=== PATIENT | male | born 1960 | race Caucasian/White ===

== ENCOUNTER → 2023-09-17 12:55 | Outpatient (CLI) | payer OTHER, SELFPAY ==
--- NOTE | 2023-09-17 13:02 | DIAB.MNT ---
Initial Diabetes Medical Nutrition Therapy Assessment Name: Jadon Wright (goes by Anabell) Date: 09/17/23 Time: 1-215p Dx: Type II Diabetes Provider: Tai Hung presents accompanied by his , with the same name Flores. Reports newly dx with T2DM x 2 months ago. Was started on Metformin and Mounjaro. Endorses minimal nausea and diarrhea with GLP1. Tolerable per report. FH of DM with mother. He and his live on a boat and motor home. They spend some time in different spots in [place] and [place]. Here until November. Interested in DM ed classes. Reports much suppressed appetite since starting GLP1. Portions are much smaller. is doing a form of intermittent fasting, which he by proxy follows. Also diet aims for low carb, somewhere around 20g CHO per day per report though seems more than that some days per diet recall. Since diagnosis has tried making diet and exercise changes. States he is unclear as to why DM will not go away with improved lifestyle change. Diet Recall: 8a: coffee with creamer x 1 TBS 11a-12p: eggs, veggies, [place], cheese OR Arabic yogurt, fruit, low CHO granola OR oatmeal with sf sweetener and berries 3p: leftovers OR fruit 6p: protein and veggies +/- 1/4 sweet potato or 1/2-1c brown rice 730-8p: low CHO ice cream x 1c 32-40oz water, sometimes sf beverages, ETOH 2x per week 1-2 servings Anthropometrics: Ht: 5'10 Wt: 290# reported Weight history: Reports -28# since dx 2 months ago. Physical Activity: Walking 3x per week for 60 mins. Self-Monitoring Blood Glucose: none, interested in knowing what numbers are. would like to contact pcp about rx. Diabetes Medications: 1000mg Metformin BID 7.5mg Mounjaro weekly Pertinent Labs: HGA1c: per referral 6.5% 06/2023 Past Medical History: Per referral: ETOH abuse, daily use, Obesity, Mixed HLD, HTN, T2DM Nutrition Rx: Carbohydrates: Meal:45g Snack:15-30g Nutrition Diagnosis: - Food and nutrition related knowledge deficit r/t newly dx T2DM aeb hgA1c 6.5% and pt report - Inadequate fluid intake r/t nutrition knowledge deficit about hydration aeb pt report and diet recall <40oz per day most days. Intervention: This participant was very receptive. Provided appropriate educational handouts. Discussed the following topics: Completed intake assessment. Discussed barriers to care. Pathophysiology of T2DM: insulin resistance, beta cell dysfunction, gluconeogenesis and why DM does not go away HgA1c, its correlation to blood glucose numbers, and rationale for goal Potential of self-monitoring and when to check. Suggested checking at different times to evaluate meals prn or understand symptom numbers Plate Method, impact of macronutrients on blood sugar, meal timing, carbohydrate counting, pairing macronutrients and spreading out carbohydrates for better blood glucose management Recommended servings for carbohydrates at meals and snacks [facility] nutrition Brainstormed appropriate meal plan based on food preferences Role of physical activity and following provider guidelines for safety Hydration recs and impact on BG Medications: actions and SE Created SMART goals for patient self-care and success. Goals: aim for 48-62oz water per day Try to pair protein when eating CHO Walk 4 x per day safely Ask PCP for meter rx prn Follow-up: BHARATHI DEAN follow-up in 3-4 weeks Risa Lama RDN, [facility] Certified Diabetes Care and Lumber Estimator P: [phone] Thank you for this referral
== END ==
PROVIDERS: PCP Family Medicine; Referring Provider Family Medicine
DX: E11.9 Type 2 diabetes mellitus without complications (principal); Z79.84 Long term (current) use of oral hypoglycemic drugs; Z79.85 Long-term (current) use of injectable non-insulin antidiabetic drugs; Z71.3 Dietary counseling and surveillance
CPT/HCPCS: 97802

== ENCOUNTER → 2023-10-18 13:00 | Outpatient (CLI) | payer MEDICARE, BC, SELFPAY ==
--- NOTE | 2023-10-18 14:02 | DIAB.MNTFU ---
Follow-up Diabetes Medical Nutrition Therapy Assessment Name: Jadon Wright Date: 10/18/23 Time: 1-145p Dx: Type II Diabetes Provider: Valentinagirma Anabell presents accompanied by his . Has seen PCP recently. New hgA1c of 5.7%. Has reduced statin and lipid profile in goal, except low HDL of 35. Has increased water intake. Curious about how much protein and kcals to have. Pairing CHO and protein more frequently. Increased GLP1 with new rx from PCP. Noticing continued lower appetite. Does still eat 3 x per day. Some reflux, relieved by antacids. Improved BM with diarrhea 1-2x per week, which he says is normal for him. d/c of Metformin since last visit. Questions about ETOH intake and heart health nutrition. Does not have meter or strips rx. Diet Recall: 8a: coffee with creamer x 1 TBS, part protein shake, oatmeal 11a-12p or 3p: leftovers 6p: protein and veggies +/- 1/4 sweet potato or 1/2-1c brown rice OR chili OR fish and salad 48oz water ETOH couple times per week Anthropometrics: Ht: 5'10 Wt: 285# Weight history: Reported down 5# since last visit. Physical Activity: Walking 3x per week for 60-90 mins. Aiming for 4x. Self-Monitoring Blood Glucose: none, interested in knowing what numbers are. would like to contact pcp about rx. Sees PCP in a few weeks again. Diabetes Medications: 1000mg Metformin BID-- d/c 12.5mg Mounjaro weekly Pertinent Labs: HGA1c: per referral 6.5% 06/2023 Past Medical History: Per referral: ETOH abuse, daily use, Obesity, Mixed HLD, HTN, T2DM Nutrition Rx: 1600kcals Carbohydrates: Meal:45g Snack:15-30g Protein: 80-130g/day Meal: 20-30g Snack: 7-14g Nutrition Diagnosis: - Food and nutrition related knowledge deficit r/t newly dx T2DM aeb hgA1c 6.5% and pt report- improved - Inadequate fluid intake r/t nutrition knowledge deficit about hydration aeb pt report and diet recall <40oz per day most days- improved Intervention: This participant was very receptive. Provided appropriate educational handouts. Discussed the following topics: Kcal and protein recs Physical activity plans and progress heart healthy nutrition: ETOH reduction, increase heart healthy fats, reduce sat fats ETOH kcals and implications for heart health Hydration recs and impact on BG Medications: actions and SE Created SMART goals for patient self-care and success. Goals: aim for 48-62oz water per day - met Try to pair protein when eating CHO- met Walk 4 x per day safely - in progress Ask PCP for meter rx prn- in progress Aim for 80g protein min- new Follow-up: BHARATHI DEAN follow-up prn, pt asked for f/u after [place] trip. Will schedule for July 2024. Risa Lama RDN, [facility] Certified Diabetes Care and Crystallography Teacher P: [phone] Thank you for this referral
== END ==
PROVIDERS: PCP Family Medicine; Referring Provider Family Medicine
DX: E11.9 Type 2 diabetes mellitus without complications (principal); Z79.84 Long term (current) use of oral hypoglycemic drugs; Z79.85 Long-term (current) use of injectable non-insulin antidiabetic drugs; Z71.3 Dietary counseling and surveillance
CPT/HCPCS: 97803

== ENCOUNTER → 2024-07-16 13:04 | Outpatient (CLI) | payer OTHER, SELFPAY | PROVIDERS: PCP Family Medicine; Visit Provider Nurse Practitioner Family | DX: R30.0 Dysuria (principal) | CPT/HCPCS: 87086 ==

== ENCOUNTER 2024-07-16 13:24 | Emergency (ER) | payer OTHER, SELFPAY ==
[2024-07-16 13:28] VITALS: BP 174/101; PULSE 72; RESP 18; TEMP 36; O2SAT 98; BMI 35.2
[2024-07-16] MEDS: LIDOCAINE 2% (GLYDO) 6 ML GEL TOP (14:19)
[2024-07-16 14:29] LABS: Appearance Urine UA CLEAR; Bilirubin Urine UA NEGATIVE (NEGATIVE); Color Urine UA YELLOW; Glucose Urine UA NEGATIVE (Negative); Ketones Urine UA NEGATIVE (NEGATIVE); Leukocyte Esterase Urine UA NEGATIVE (NEGATIVE); Nitrite Urine UA NEGATIVE (Negative); Occult Blood Urine UA TRACE-INTACT (Negative); Protein Urine UA NEGATIVE (Negative); Specific Gravity Urine UA >=1.030 (1.000-1.035); Urobilinogen Urine UA 0.2 E.U./dL (0.2); pH Urine UA 5.5 (4.5-8.0)
[2024-07-16 14:32] LABS: Urine Volume 10mL (spun)
[2024-07-16 14:33] LABS: Bacteria Urine None Seen; Culture Indicated Urine Cult Not Indicated; RBC Urine 1-5/HPF (0-5/HPF); Squamous Epithelial Cell Urine None Seen (0-5/HPF); WBC Urine None Seen (0-5/HPF)
[2024-07-16 15:43] VITALS: BP 160/87; O2SAT 97
--- NOTE | 2024-07-16 16:39 | ED.GENADULT ---
HPI - General Adult General Chief complaint: Urogenital-Male Stated complaint: pcp ref, urogenital male, abd pain Time Seen by Provider: 07/16/24 13:41 Source: patient Mode of arrival: Ambulatory History of Present Illness HPI narrative: 63-year-old gentleman with a history of BPH currently on tamsulosin, recurrent episodes of acute urinary retention requiring Samuels catheter placement, hypertension, hyperlipidemia presents complaining of acute urinary retention. No fevers, cough, chills. Most recent Samuels catheter was taken out about 3 weeks ago. He has not appointment with his primary care doctor tomorrow to get a referral for Urology regarding his BPH. Related Data Home Medications Medication Instructions Recorded Confirmed aspirin 81 mg tablet,delayed 81 mg PO DAILY 11/28/23 07/16/24 release lisinopril 40 mg tablet 40 mg PO BID 11/28/23 07/16/24 rosuvastatin 20 mg tablet 20 mg PO DAILY 11/28/23 07/16/24 tadalafil 20 mg tablet 20 mg PO DAILY PRN intercourse 11/28/23 07/16/24 Previous Rx's Medication Instructions Recorded tamsulosin 0.4 mg capsule 0.4 mg PO BEDTIME #90 caps 12/09/23 bictegravir 50 mg-emtricitabine 1 tab PO DAILY #90 tabs 03/26/24 200 mg-tenofovir alafenam 25 mg tablet (Biktarvy) carvedilol 12.5 mg tablet 12.5 mg PO BID #180 tabs 04/03/24 tirzepatide 15 mg/0.5 mL 15 mg (0.5 mL) SUBCUT QWEEK #2 mL 05/18/24 subcutaneous pen injector (Mounjaro) Allergies Allergy/AdvReac Type Severity Reaction Status Date / Time No Known Drug Allergies Allergy Verified 07/16/24 13:32 Review of Systems Review of Systems Narrative: Pertinent positive and negative findings as per HPI Patient History Medical History BPH (benign prostatic hyperplasia) Type 2 diabetes mellitus Erectile dysfunction Hyperlipidemia History of myocardial infarction Hypertension HIV (human immunodeficiency virus infection) Smoking Status: Never smoker Exam Initial Vital Signs Initial Vital Signs: Vital Signs Temperature 96.8 F L 07/16/24 13:28 Pulse Rate 72 07/16/24 13:28 Respiratory Rate 18 07/16/24 13:28 Blood Pressure 174/101 H 07/16/24 13:28 Pulse Oximetry 98 07/16/24 13:28 Oxygen Delivery Method Room Air 07/16/24 13:28 General: Alert appropriate in no acute distress Respiratory: Able to speak in full sentences, no obvious respiratory distress Skin: No obvious rashes, warm and dry Neurologic: Grossly intact no obvious asymmetries or abnormalities Psych: appropriate insight and affect, cooperative Post Samuels catheter placement, 900 cc out and no complaints of pain at this time Course Orders Ordered: ED Orders 07/16/24 14:07 Urinalysis and Microscopic Stat Discontinued Medications Lidocaine HCl (Lidocaine 2% (Glydo) 6 Ml Gel) 6 ml TOP NOW ONE Stop: 07/16/24 13:48 Last Admin: 07/16/24 14:19 Dose: 6 ml Documented By: ALEX Vital Signs Vital signs: Vital Signs - 8 hr 07/16/24 13:28 07/16/24 15:43 07/16/24 15:43 Temperature 96.8 F L Pulse Rate 72 Respiratory Rate 18 Blood Pressure 174/101 H 160/87 H Pulse Oximetry 98 97 Oxygen Delivery Method Room Air Medical Decision Making Lab Data Labs: Lab Results 07/16/24 Range/Units 14:07 Urine Color Yellow Urine Appearance Clear Urine pH 5.5 (4.5-8.0) Ur Specific [place] >=1.030 H (1.000-1.035) Urine Protein Negative (Negative) Urine Glucose (UA) Negative (Negative) g/dL Urine Ketones Negative (NEGATIVE) Urine Occult Blood Trace-intact (Negative) Urine Nitrate Negative (Negative) Urine Bilirubin Negative (NEGATIVE) Urine Urobilinogen 0.2 (0.2) E.U./dL Ur Leukocyte Esterase Negative (NEGATIVE) Urine RBC 1-5/hpf (0-5/HPF) Urine WBC None seen (0-5/HPF) Ur Squamous Epith Cells None seen (0-5/HPF) Urine Bacteria None seen (None) Ur Culture Indicated? Cult not indicated Vol Urine Centrifuged 10ml (spun) MDM Narrative Medical decision making narrative: 63-year-old gentleman with recurrent acute urinary retention. Most recent Samuels catheter removed about 3 weeks ago. He is currently on tamsulosin. Eyes having increasing abdominal pain secondary to his acute urinary retention. There was no evidence of infection or obstructing stones at this time. Samuels catheter is placed without significant difficulty. 900 cc is removed. He is aware of how to care for and maintain his catheter. He is given a large bag and of leg bag. He has an appointment with his primary care physician tomorrow to discuss this specific issue further and obtain a referral for urologic consultation. At this time there was no indication for further workup or hospitalization he is safe for discharge Discharge Plan Departure Patient Disposition: Home Clinical Impression: Acute urinary retention, BPH w urinary obs/LUTS Instructions: How to Care for Your Samuels Catheter -- Male, DI for Benign Prostatic Hyperplasia Activity Restrictions/Additional Instructions: thank you for coming in today I am sorry that your prostate is continuing to cause significant problems. I would recommend that you continue your tamsulosin for now Samuels catheter was placed, you had 900 cc of urine. Leg bag is given. You do need to talk to your primary care provider to get to urology. You likely we will need to continue the Samuels catheter until you have had further discussions with the urologist. You may need to have some type of surgical intervention to reduce the overall size of your prostate before you are able to successfully remove the catheter at this point. If you find that you are getting worse or develop any new symptoms, please feel free to return to the emergency department for further evaluation. Prescriptions: No Action tamsulosin 0.4 mg capsule 0.4 mg PO BEDTIME Qty: 90 3RF Biktarvy 50-200-25 mg tablet 1 tab PO DAILY Qty: 90 0RF Rx Instructions: short term while traveling carvedilol 12.5 mg tablet 12.5 mg PO BID Qty: 180 2RF Mounjaro 15 mg/0.5 mL pen injector 15 mg SUBCUT QWEEK Qty: 2 2RF tadalafil 20 mg tablet 20 mg PO DAILY PRN (Reason: intercourse) rosuvastatin 20 mg tablet 20 mg PO DAILY aspirin 81 mg tablet,delayed release (DR/EC) 81 mg PO DAILY lisinopril 40 mg tablet 40 mg PO BID Referrals: Fernando Mcnamara DO [Primary Care Provider] - Stand Alone Forms: Patient Portal/API/Survey
[2024-07-16 16:47] VITALS: BP 161/87; PULSE 71; RESP 17; O2SAT 98
== END 2024-07-16 16:43 | disposition home or self-care (01) ==
PROVIDERS: Emergency Provider Emergency Medicine; PCP Family Medicine
DX: N40.1 Benign prostatic hyperplasia with lower urinary tract symptoms (principal); R33.8 Other retention of urine; R30.0 Dysuria
CPT/HCPCS: 51798; 81001; 87086; 99283

== ENCOUNTER → 2024-07-21 14:00 | Outpatient (CLI) | payer MEDICARE, SELFPAY ==
[2024-07-21 14:38] LABS: Appearance Urine UA CLEAR; Bilirubin Urine UA 1+ (NEGATIVE); Color Urine UA YELLOW; Glucose Urine UA NEGATIVE (Negative); Ketones Urine UA TRACE (NEGATIVE); Leukocyte Esterase Urine UA TRACE (NEGATIVE); Nitrite Urine UA POSITIVE (Negative); Occult Blood Urine UA 3+ (Negative); Protein Urine UA 2+ (Negative); Specific Gravity Urine UA 1.025 (1.000-1.035); pH Urine UA 5.5 (4.5-8.0)
[2024-07-21 14:40] LABS: RBC Urine 10-30/HPF (0-5/HPF); Urine Volume 10mL (spun); WBC Urine 5-10/HPF (0-5/HPF)
[2024-07-21 14:41] LABS: Amorphous Sediment Urine 1+; Bacteria Urine Moderate (10-30); Squamous Epithelial Cell Urine 0-1 /HPF (0-5/HPF)
[2024-07-21 14:43] LABS: Culture Indicated Urine Specimen Cultured; Ictotest Urine Negative (Negative)
== END ==
PROVIDERS: PCP Family Medicine; Referring Provider Family Medicine; Visit Provider Family Medicine
DX: R31.9 Hematuria, unspecified (principal)
CPT/HCPCS: 81001; 87077; 87086; 87186

== ENCOUNTER → 2024-07-22 07:54 | Outpatient (CLI) | payer MEDICARE, SELFPAY ==
[2024-07-22 08:39] LABS: Hemoglobin A1C% w Est Avg Glu 5.1 % (4.0-6.0)
[2024-07-22 08:43] LABS: Alanine Aminotransferase 31 IU/L (<50); Albumin 4.1 g/dL (3.5-5.0); Alkaline Phosphatase 66 U/L (38-126); Aspartate Aminotransferase 26 IU/L (17-59); Bilirubin Total 0.5 mg/dL (0.2-1.3); Blood Urea Nitrogen 17 mg/dL (9-20); Calcium 9.3 mg/dL (8.4-10.2); Carbon Dioxide 24 mmol/L (22-32); Chloride 103 mmol/L (98-107); Cholesterol 116 mg/dL (140-199); Estimated Glomerular Filt Rate > 60 mL/min (>60); Globulin 2.1 g/dL (1.7-4.1); Glucose 101 mg/dL (70-99); HDL Cholesterol 41 mg/dL (40-60); HEMOLYSIS < 15 (0-50); LDL Cholesterol Calculated 52 mg/dL (<100); Potassium 4.4 mmol/L (3.4-5.1); Sodium 136 mmol/L (137-145); Total Protein 6.2 g/dL (6.3-8.2); Triglycerides 113 mg/dL (35-150)
[2024-07-22 08:54] LABS: Add Manual Diff / Slide Review NO; Basophils Absolute Auto 0 /uL (0-100); Basophils Percent Auto 0.4 % (0-2); Eosinophils Absolute Auto 200 /uL (0-450); Eosinophils Percent Auto 3.3 % (2-4); Hematocrit 41.1 % (41-53); Hemoglobin 13.9 g/dL (13.5-17.5); Lymphocytes Absolute Auto 1400 /uL (1100-4500); Lymphocytes Percent Auto 25.8 % (25-40); Mean Corpuscular HGB Conc 33.7 % (30-36); Mean Corpuscular Hemoglobin 32.6 PG (26-34); Mean Corpuscular Volume 96.5 fL (80-100); Monocytes Absolute Auto 500 /uL (0-900); Monocytes Percent Auto 9.5 % (3-14); Neutrophils Absolute Auto 3300 /uL (1500-7000); Platelet Count 195 X10^3/uL (150-400); Red Blood Cell Count 4.26 X10^6/uL (4.5-5.9); Red Cell Distribution Width 12.7 % (11.6-14.8); White Blood Cell Count 5.5 X10^3/uL (4.5-11.0)
[2024-07-22 09:14] LABS: Prostate Specific Antigen 11.3 ng/mL (0.10-4.00)
[2024-07-22 09:21] LABS: TSH w/ Reflex to FT4 1.17 uIU/mL (0.47-4.68)
== END ==
PROVIDERS: PCP Family Medicine; Referring Provider Family Medicine; Visit Provider Family Medicine
DX: E11.59 Type 2 diabetes mellitus with other circulatory complications (principal); N40.1 Benign prostatic hyperplasia with lower urinary tract symptoms; R35.1 Nocturia; I10 Essential (primary) hypertension; E78.00 Pure hypercholesterolemia, unspecified
CPT/HCPCS: 36415; 80053; 80061; 83036; 84153; 84443; 85025

== ENCOUNTER → 2024-08-12 14:33 | Outpatient (CLI) | payer MEDICARE, SELFPAY | PROVIDERS: PCP Family Medicine; Visit Provider Urology | DX: N40.1 Benign prostatic hyperplasia with lower urinary tract symptoms (principal); R35.1 Nocturia | CPT/HCPCS: 87086 ==

== ENCOUNTER 2024-08-12 22:11 | Emergency (ER) | payer MEDICARE, SELFPAY ==
[2024-08-12 22:25] VITALS: BP 159/100; PULSE 76; RESP 15; TEMP 37.1; O2SAT 95; BMI 34.8
[2024-08-12 22:32] VITALS: BP 162/101
[2024-08-12 22:47] LABS: Urine Volume 10mL (spun)
[2024-08-12 22:48] LABS: Bacteria Urine Many (>30); RBC Urine 1-5/HPF (0-5/HPF); Squamous Epithelial Cell Urine 1-5 /HPF (0-5/HPF); WBC Urine 30-100/HPF (0-5/HPF)
--- NOTE | 2024-08-12 22:59 | ED.GENADULT ---
HPI - General Adult General Chief complaint: Urogenital-Male Stated complaint: Urinary Symptoms Time Seen by Provider: 08/12/24 22:13 Source: patient Mode of arrival: Ambulatory History of Present Illness HPI narrative: 64-year-old male with history of urinary retention 3 months ago treated in [facility], more recently 1 month ago having urinary retention symptoms with urinary Samuels catheter placement here, pulled out in clinic with local urologist earlier today, increasing suprapubic discomfort since then, despite taking Flomax. No fevers or chills. No flank pain. Related Data Home Medications ?Medication ?Instructions ?Recorded ?Confirmed aspirin 81 mg tablet,delayed 81 mg PO DAILY 11/28/23 08/12/24 release rosuvastatin 20 mg tablet 20 mg PO DAILY 11/28/23 08/12/24 tadalafil 20 mg tablet 20 mg PO DAILY PRN intercourse 11/28/23 08/12/24 Previous Rx's ?Medication ?Instructions ?Recorded bictegravir 50 mg-emtricitabine 1 tab PO DAILY #90 tabs 03/26/24 200 mg-tenofovir alafenam 25 mg tablet (Biktarvy) carvedilol 12.5 mg tablet 12.5 mg PO BID #180 tabs 04/03/24 finasteride 5 mg tablet 5 mg PO DAILY #30 tabs 07/20/24 lisinopril 20 mg tablet 20 mg PO BID #180 tabs 07/24/24 tamsulosin 0.4 mg capsule 0.4 mg PO BID #180 caps 07/24/24 blood-glucose sensor (FreeStyle #1 ea 07/27/24 Lanre 3 Plus Sensor device) blood-glucose,county or city auditor,cont #1 ea 07/27/24 (FreeStyle Lanre 3 [place]) tirzepatide 15 mg/0.5 mL 15 mg (0.5 mL) SUBCUT QWEEK #2 mL 08/12/24 subcutaneous pen injector (Franci) cefdinir 300 mg capsule 300 mg PO BID 7 days #14 caps 08/13/24 Allergies Allergy/AdvReac Type Severity Reaction Status Date / Time No Known Drug Allergies Allergy Verified 08/12/24 22:23 Patient History Medical History BPH (benign prostatic hyperplasia) Type 2 diabetes mellitus Erectile dysfunction Hyperlipidemia History of myocardial infarction Hypertension HIV (human immunodeficiency virus infection) Social History Smoking Status: Former smoker Smoking Status: Former smoker tobacco type: cigarettes and vaping Alcohol type: hard liquor Exam Narrative Exam Narrative: GENERAL: Well-developed patient, in mild distress. HEAD: Atraumatic. Normocephalic. EYES: Pupils equal round and reactive. Extraocular motions intact. No scleral icterus. No injection or drainage. ENT: Nose without bleeding, purulent drainage. Throat without erythema, tonsillar hypertrophy or exudate. Airway patent. NECK: Trachea midline. Non tender CARDIOVASCULAR: Regular rate and rhythm without murmurs, gallops, or rubs. RESPIRATORY: Clear to auscultation. Breath sounds equal bilaterally. No wheezes, rales, or rhonchi. GASTROINTESTINAL: Abdomen soft, non-tender, nondistended. : Circumcised male genitalia, Samuels in place from nursing, no blood around the meatus, clear yellow fluid in urinary catheter tubing. EXTREMITIES: No edema or joint tenderness. BACK: Nontender without deformity or crepitance. No flank tenderness. NEURO: AOx3. Motor functions grossly nonfocal. SKIN: No rash or erythema of visible areas Initial Vital Signs Initial Vital Signs: Vital Signs Temperature 98.8 F 08/12/24 22:25 Pulse Rate 76 08/12/24 22:25 Respiratory Rate 15 08/12/24 22:25 Blood Pressure 159/100 H 08/12/24 22:25 Pulse Oximetry 95 08/12/24 22:25 Oxygen Delivery Method Room Air 08/12/24 22:25 Course Orders Ordered: ED Orders 08/12/24 22:15 Urine Culture Stat Urine Microscopic Stat 08/13/24 00:29 Urine Culture Stat Discontinued Medications Cefdinir (Cefdinir 300 Mg Capsule) 300 mg PO NOW ONE Stop: 08/13/24 00:31 Last Admin: 08/13/24 00:40 Dose: 300 mg Documented By: ALEX Vital Signs Vital signs: Vital Signs - 8 hr 08/12/24 22:25 08/12/24 22:32 08/12/24 23:07 Temperature 98.8 F Pulse Rate 76 73 Respiratory Rate 15 Blood Pressure 159/100 H 162/101 H Pulse Oximetry 95 96 Oxygen Delivery Method Room Air 08/12/24 23:07 08/12/24 23:30 08/12/24 23:30 Temperature Pulse Rate 72 Respiratory Rate Blood Pressure 154/94 H 132/81 Pulse Oximetry 93 Oxygen Delivery Method 08/13/24 00:00 08/13/24 00:00 08/13/24 00:30 Temperature Pulse Rate 75 75 Respiratory Rate Blood Pressure 123/79 Pulse Oximetry 94 91 Oxygen Delivery Method 08/13/24 00:30 Temperature Pulse Rate Respiratory Rate Blood Pressure 127/77 Pulse Oximetry Oxygen Delivery Method Medical Decision Making Lab Data Lab results reviewed: Yes I reviewed the patient's lab results. Lab results narrative: Urinalysis with pyuria and bacteriuria, urine culture pending. Labs: Lab Results 08/12/24 Range/Units 22:15 Urine RBC 1-5/hpf D (0-5/HPF) Urine WBC 30-100/hpf H (0-5/HPF) Ur Squamous Epith Cells 1-5 /hpf (0-5/HPF) Urine Bacteria Many (>30) H (None) Vol Urine Centrifuged 10ml (spun) Urine Dip Bedside Urine Glucose Negative Bedside Urine Bilirubin - Negative Bedside Urine Ketone - Negative Urine Specific [place] 1.010 Bedside Urine Occult Blood - Negative Bedside Urine pH 6.0 Bedside Urine Protein - Negative Bedside Urine Urobilinogen - Negative Bedside Urine Nitrite - Negative Bedside Urine Leukocytes + 70 Esterase Point of care testing: Urine Dip Bedside Urine Glucose Negative Bedside Urine Bilirubin - Negative Bedside Urine Ketone - Negative Urine Specific [place] 1.010 Bedside Urine Occult Blood - Negative Bedside Urine pH 6.0 Bedside Urine Protein - Negative Bedside Urine Urobilinogen - Negative Bedside Urine Nitrite - Negative Bedside Urine Leukocytes + 70 Esterase [facility] Narrative Medical decision making narrative: History of previous urinary retention 3 months ago, last month with urinary retention prompting catheter placement here, removed in urology clinic earlier today, increasing discomfort suprapubic since then, inability to urinate. Bladder scan I volume, catheter placed, nonbloody urine 775 mL into collection bag, patient feels better. Urinalysis pending. Urinalysis shows pyuria and bacteriuria. Urine culture triggered. Recent course of levofloxacin antibiotic, we will use cephalosporin antibiotic, 1st dose of cefdinir, prescription 7 day course sent to his pharmacy. Patient will contact his urologist tomorrow morning. Feels better, stable, improved. Discharged home with . Discharge Plan Departure Patient Disposition: Home Clinical Impression: Urinary retention, Urinary tract infection Instructions: DI for Urinary Tract Infection (UTI), DI for Urinary Retention in Men Activity Restrictions/Additional Instructions: History of urinary retention 3 months ago [facility] [place], again occurrence 1 month ago when Samuels placed here, removed earlier today in urology office of Dr. Sen, taking Flomax medication, since urinary catheter removal this afternoon has not been able to urinate, with increasing suprapubic pain. No fever. Bladder scan showed large volume after attempt to urinate. Nonbloody urine placed after Samuels catheter placed. We will leave in place for now. Follow up with Urology, call the office of Dr. Sen tomorrow. Urinalysis showed inflammatory cells and many bacteria, urine culture pending. You had a course of levofloxacin antibiotic recent weeks. We will choose different class of antibiotic, oral cefdinir dose given, prescription for further cefdinir sent to your pharmacy. Take antibiotics as directed. Drink plenty of fluids. Follow up with your urologist. Return earlier to this/nearest emergency department for any change worsening symptoms or any concerns prior. Prescriptions: New cefdinir 300 mg capsule 300 mg PO BID 7 Days Qty: 14 0RF No Action Biktarvy 50-200-25 mg tablet 1 tab PO DAILY Qty: 90 0RF Rx Instructions: short term while traveling carvedilol 12.5 mg tablet 12.5 mg PO BID Qty: 180 2RF tamsulosin 0.4 mg capsule 0.4 mg PO BID Qty: 180 1RF lisinopril 20 mg tablet 20 mg PO BID Qty: 180 1RF (DME) FreeStyle Lanre 3 Plus Sensor Device See Rx Instructions .Route Qty: 1 0RF Rx Instructions: As directed (DME) FreeStyle Lanre 3 [place] Misc See Rx Instructions .Route Qty: 1 0RF Rx Instructions: As directed Mounjaro 15 mg/0.5 mL pen injector 15 mg SUBCUT QWEEK Qty: 2 0RF tadalafil 20 mg tablet 20 mg PO DAILY PRN (Reason: intercourse) rosuvastatin 20 mg tablet 20 mg PO DAILY aspirin 81 mg tablet,delayed release (DR/EC) 81 mg PO DAILY finasteride 5 mg tablet 5 mg PO DAILY Qty: 30 2RF Referrals: Santi Sen DO [Physician, Urology] Fernando Mcnamara DO [Primary Care Provider, Family Practice] Stand Alone Forms: Patient Portal/API
[2024-08-12 23:07] VITALS: BP 154/94; PULSE 73; O2SAT 96
[2024-08-12 23:30] VITALS: BP 132/81; PULSE 72; O2SAT 93
[2024-08-13] VITALS: BP 123/79; PULSE 75; O2SAT 94
[2024-08-13 00:30] VITALS: BP 127/77; PULSE 75; O2SAT 91
[2024-08-13] MEDS: CEFDINIR 300 MG CAPSULE PO (00:40)
== END 2024-08-13 00:57 | disposition home or self-care (01) ==
PROVIDERS: Emergency Provider Emergency Medicine; PCP Family Medicine
DX: N39.0 Urinary tract infection, site not specified (principal); R33.9 Retention of urine, unspecified
CPT/HCPCS: 51702; 51798; 81003; 81015; 87077; 87086; 87186; 99283; 99284

== ENCOUNTER → 2024-09-02 14:18 | Outpatient (CLI) | payer MEDICARE, SELFPAY | PROVIDERS: PCP Family Medicine; Visit Provider Urology | DX: N40.1 Benign prostatic hyperplasia with lower urinary tract symptoms (principal); R97.20 Elevated prostate specific antigen [PSA]; R33.9 Retention of urine, unspecified | CPT/HCPCS: 81002; 87077; 87086; 87186; 99213 ==

== ENCOUNTER → 2024-09-08 11:11 | Outpatient (CLI) | payer MEDICARE, SELFPAY ==
[2024-09-08 12:38] LABS: Alanine Aminotransferase 81 IU/L (<50); Albumin 4.1 g/dL (3.5-5.0); Albumin Globulin Ratio 1.5 (1.0-2.8); Alkaline Phosphatase 80 U/L (38-126); Globulin 2.7 g/dL (1.7-4.1); HEMOLYSIS < 15 (0-50); Total Protein 6.8 g/dL (6.3-8.2)
[2024-09-08 15:26] LABS: Hep C Virus Ab w/Reflex Quant NEGATIVE s/c (NEGATIVE)
== END ==
PROVIDERS: PCP Family Medicine; Referring Provider Internal Medicine Infectious Disease; Visit Provider Internal Medicine Infectious Disease
DX: R79.89 Other specified abnormal findings of blood chemistry (principal)
CPT/HCPCS: 36415; 80076; 86803

== ENCOUNTER → 2024-09-29 09:27 | Outpatient (CLI) | payer MEDICARE, SELFPAY ==
[2024-09-29 11:24] LABS: Alanine Aminotransferase 25 IU/L (<50); Albumin 4.0 g/dL (3.5-5.0); Albumin Globulin Ratio 1.6 (1.0-2.8); Alkaline Phosphatase 67 U/L (38-126); Globulin 2.5 g/dL (1.7-4.1); HEMOLYSIS < 15 (0-50); Total Protein 6.5 g/dL (6.3-8.2)
[2024-09-29 11:26] LABS: Cholesterol 126 mg/dL (140-199); HDL Cholesterol 47 mg/dL (40-60); Triglycerides 125 mg/dL (35-150)
[2024-09-29 17:17] LABS: Hep C Virus Ab w/Reflex Quant NEGATIVE s/c (NEGATIVE)
== END ==
PROVIDERS: Internal Medicine; PCP Family Medicine; Referring Provider Internal Medicine Infectious Disease; Visit Provider Internal Medicine Infectious Disease
DX: R79.89 Other specified abnormal findings of blood chemistry (principal); E78.5 Hyperlipidemia, unspecified
CPT/HCPCS: 36415; 80061; 80076; 86803